=== PATIENT | female | born 1995 | race African-American/Black ===

== ENCOUNTER 2021-04-02 16:10 | Emergency (ER) | payer OTHER, SELFPAY ==
[2021-04-02 17:06] VITALS: BP 167/95; PULSE 81; RESP 17; TEMP 36.6; O2SAT 100; BMI 37.3
--- NOTE | 2021-04-02 17:10 | ECG_ITS ---
Test Reason : HYPERTENTION Blood Pressure : / mmHG Vent. Rate : 079 BPM Atrial Rate : 079 BPM P-R Int : 150 ms QRS Dur : 080 ms QT Int : 358 ms P-R-T Axes : 060 051 034 degrees QTc Int : 410 ms Normal sinus rhythm Normal ECG No previous ECGs available Referred By: Generic ED Physician Electronically Signed By:LEIDY ADKINS
[2021-04-02 17:55] LABS: MANUAL DIFF FLAG NO
[2021-04-02 17:57] LABS: Basophils Percent Auto 0.3 % (0-2); Eosinophils Absolute Auto 0.2 X10*3/uL (0.0-0.4); Eosinophils Percent Auto 2.5 % (0-4); Hematocrit 38.1 % (37-47); Hemoglobin 12.6 g/dl (12.0-16.0); Imm Gran Abs Auto 0.02 X10*3/uL (0.00-0.03); Imm Gran Pct Auto 0.3 % (0.0-0.4); Lymphocytes Absolute Auto 1.6 X10*3/uL (1.2-4.9); Lymphocytes Percent Auto 20.4 % (20-40); Mean Corpuscular HGB Conc 33.1 g/dl (31.0-35.0); Mean Corpuscular Hemoglobin 26.5 pg (27.0-33.0); Mean Corpuscular Volume 80.2 fL (80-98); Mean Platelet Volume 11.9 fL (9.4-12.3); Monocytes Absolute Auto 0.8 X10*3/uL (0.1-1.2); Monocytes Percent Auto 9.9 % (2-11); Neutrophils Absolute Auto 5.1 X10*3/uL (2.0-8.3); Neutrophils Percent Auto 66.6 % (45-73); Platelet Count 228 X10*3/uL (160-400); Red Blood Count 4.75 X10*6/uL (4.20-5.50); White Blood Count 7.7 X10*3/uL (4.8-10.8)
[2021-04-02 18:18] LABS: Troponin-I High Sensitivity < 3.5 ng/L (<3.5-17.0)
[2021-04-02 18:25] LABS: Anion Gap 11 (12-20); Blood Urea Nitrogen 15 mg/dL (9-16); Calcium 9.5 mg/dL (8.4-10.2); Carbon Dioxide 28 mmol/L (22-29); Chloride 105 mmol/L (96-108); Creatinine Clr Calc Pharmacy 89.1; Estimated Glomerular Filt Rate 58; Glucose Random 87 mg/dL (60-115); Potassium 4.2 mmol/L (3.3-5.1); Sodium 140 mmol/L (135-145)
[2021-04-02 19:31] VITALS: BP 163/103; PULSE 83; RESP 18; TEMP 36.6; O2SAT 100
--- NOTE | 2021-04-02 19:40 | ED_ITS ---
HPI - General Adult General Chief complaint: General Medical Stated complaint: High blood pressure Time Seen by Provider: 04/02/21 19:25 Source: patient Mode of arrival: ambulatory Limitations: no limitations History of Present Illness HPI narrative: 25 y/o female presenting to the ER from home for evaluation of high blood pressure. She reports for the last 1-2 weeks she has been getting intermittent headaches. Last night she had some chest discomfort before she went to bed and she was flushed in her face and chest. Her family member encouraged her to check her BP today and it was elevated at 167/90 at home. She denies history of HTN. Not on any meds. Admits to some weight gain and increased stress at home. No vision changes, no current headache or chest pain. MD complaint: HTN Onset (ago): week(s) Location: head and chest Radiation: non-radiation Severity: mild Quality: aching Pain Consistency: now resolved Relieving factors: none Exacerbating factors: none Associated symptoms: denies other symptoms Treatments prior to arrival: none Related Data Allergies Allergy/AdvReac Type Severity Reaction Status Date / Time No Known Allergies Allergy Verified 04/02/21 17:06 [No Known Allergies*] Review of Systems Review of Systems: Constitutional: No Fever, No Chills ENT/Mouth: No sore throat, No Rhinorrhea, No Swallowing Difficulty Eyes: No Vision changes Cardiovascular: + Chest Pain, No SOB, No Orthopnea, No Edema Respiratory: No Cough, No Sputum, No Wheezing, No dyspnea Gastrointestinal: No Nausea, No Vomiting, No Diarrhea, No abdominal Pain Genitourinary: No Dysuria, No Urinary Frequency, No Hematuria Musculoskeletal: No joint pain, No Myalgias Skin: No Skin Lesions, No rash Neuro: No Weakness, No Numbness, + Dizziness, + Headache Psych: + Anxiety/Panic, No Depression Endocrine: No Polyuria, No Polydipsia PMFSH Past Medical History Surgical History (Updated 04/02/21 @ 17:08 by Candi Montoya RN) H/O shoulder surgery Social History Social History Advance Directives: No Advance Directives Information Provided: Yes Patient : No Physical Exam 2 Vital Signs: Vital Signs: Last Vital Signs Temp 97.9 F 04/02/21 19:31 Pulse 79 04/02/21 20:31 Resp 16 04/02/21 20:31 BP 148/99 H 04/02/21 20:31 Pulse Ox 100 04/02/21 20:31 Body Mass Index 37.3 Appearance: Alert. Oriented X3. No acute distress. Eyes: Pupils equal, round and reactive to light. ENT: Pharynx normal. Neck: Normal inspection. Neck supple. CVS: Normal heart rate and rhythm. Pulses normal. Respiratory: No respiratory distress. Breath sounds normal. Abdomen: Soft and nontender. +BS x4 Skin: Skin warm and dry. Normal skin color. Normal skin turgor. No rashes. Extremities: No lower extremity edema. No calf tenderness Neuro: Oriented X 3. No motor deficit. No sensory deficit. Course Course Course Narrative: 25 y/o female presents for evaluation of HTN. BP initially 167/95. EKG normal. Troponin normal. Patient is asymptomatic at this time. She appears well. Repeat BP without intervention is 148/99. She is stable for d/c home with dietary modifications, weight loss and follow up with her PCP. No emergent need to start PO meds. She has a PCP she can follow up with and a BP cuff at home to monitor her pressures. She agrees with plan and is stable for discharge. Medical Decision Making Lab Data Result diagrams: 04/02/21 17:48 04/02/21 17:48 Labs: Lab Results 04/02/21 04/02/21 04/02/21 Range/Units 17:48 17:48 17:48 WBC 7.7 (4.8-10.8) X10*3/uL RBC 4.75 (4.20-5.50) X10*6/uL Hgb 12.6 (12.0-16.0) g/dl Hct 38.1 (37-47) % MCV 80.2 (80-98) fL MCH 26.5 L (27.0-33.0) pg MCHC 33.1 (31.0-35.0) g/dl RDW 13.0 (11.0-16.0) % Plt Count 228 (160-400) X10*3/uL MPV 11.9 (9.4-12.3) fL Immature Gran % (Auto) 0.3 (0.0-0.4) % Neut % (Auto) 66.6 (45-73) % Lymph % (Auto) 20.4 (20-40) % [place] % (Auto) 9.9 (2-11) % Eos % (Auto) 2.5 (0-4) % Baso % (Auto) 0.3 (0-2) % Lymph # (Auto) 1.6 (1.2-4.9) X10*3/uL [place] # (Auto) 0.8 (0.1-1.2) X10*3/uL Eos # (Auto) 0.2 (0.0-0.4) X10*3/uL Baso # (Auto) 0.0 (0.0-0.2) X10*3/uL Abs Immat Gran (auto) 0.02 (0.00-0.03) X10*3/uL Absolute Neuts (auto) 5.1 (2.0-8.3) X10*3/uL Absolute Nucleated RBC 0.000 (0.0-0.012) X10*3/uL Nucleated RBC % (auto) 0.0 (0.0-0.2) /100WBC Sodium 140 (135-145) mmol/L Potassium 4.2 (3.3-5.1) mmol/L Chloride 105 (96-108) mmol/L Carbon Dioxide 28 (22-29) mmol/L Anion Gap 11 L (12-20) BUN 15 (9-16) mg/dL Creatinine 1.13 (0.5-1.4) mg/dL Estim Creat Clear Calc 89.1 Estimated GFR 58 Random Glucose 87 (60-115) mg/dL Calcium 9.5 (8.4-10.2) mg/dL Troponin I High Sens < 3.5 (<3.5-17.0) ng/L ECG Data Attestation: I personally reviewed and interpreted this ECG as follows: Interpretation: normal sinus rhythm, HR 79, normal PA interval, No ST segment el evations or depressions Discharge Plan Discharge Clinical Impression: Hypertension Qualifiers: Hypertension type: unspecified Qualified Code(s): I10 - Essential (primary) hypertension Patient Disposition: Home, Self-Care Instructions: DASH Eating Plan (ED), Hypertension (ED) Additional Instructions: Take your blood pressure 1-2 times per day and keep a record for your doctor. Call your doctor tomorrow to arrange an appointment to be seen in the next couple of weeks. Recommend a low sodium diet. Increase your exercise. If you develop severe chest pain, severe headache, blurry vision or any other concerning symptoms call 911 or come back to the ER for further evaluation. Referrals: Guevara Hand MD [Primary Care Provider] - 1 week (HTN) Interventions: ED Discharge Assessment Last Done: 04/02/21 20:31 Discharge Date/Time: 04/02/21 20:32
[2021-04-02 20:31] VITALS: BP 148/99; PULSE 79; RESP 16; O2SAT 100
== END 2021-04-02 20:32 | disposition home or self-care (01) ==
PROVIDERS: Emergency Provider Emergency Medicine Emergency Medical Services; PCP Internal Medicine
DX: R07.9 Chest pain, unspecified (principal); I10 Essential (primary) hypertension; R51.9 Headache, unspecified
CPT/HCPCS: 36415; 80048; 84484; 85025; 93005; 99284

== ENCOUNTER → 2023-01-08 10:09 | Outpatient (BNVA) | payer OTHER, SELFPAY | PROVIDERS: PCP Internal Medicine; Visit Provider Advanced Practice Midwife | DX: N92.6 Irregular menstruation, unspecified (principal); I10 Essential (primary) hypertension | CPT/HCPCS: 81025; 99202 ==

== ENCOUNTER 2023-01-14 16:17 | Outpatient (REF) | payer OTHER, SELFPAY ==
--- NOTE | ~2023-01-14 | US_ITS ---
EXAMINATION: US PELVIS CLINICAL INFORMATION: Irregular menstruation COMPARISON: None available. TECHNIQUE: Ultrasound of the pelvis is performed using both transabdominal and transvaginal transducers along with Doppler. Transvaginal imaging is performed due to inadequate visualization transabdominally. FINDINGS: The uterus is retroverted and retroflexed and measures 8.2 x 4.4 x 2.1 cm in dimension. No focal uterine lesion is seen. Endometrial thickness is normal measuring 0.9 cm. The ovaries are normal-appearing. The right ovary measures 4.4 x 2.1 x 2.2 cm. The left ovary measures 3.7 x 2.5 x 1.7 cm. There is a small amount of fluid in the pelvis. US/US pelvic and transvaginal IMPRESSION: Unremarkable exam.
== END 2023-01-14 16:18 | disposition home or self-care (01) ==
LOC: HO.US 16:17
PROVIDERS: PCP Internal Medicine; Visit Provider Advanced Practice Midwife
DX: N92.6 Irregular menstruation, unspecified (principal); I10 Essential (primary) hypertension; Z87.42 Personal history of other diseases of the female genital tract
CPT/HCPCS: 76830; 76856

== ENCOUNTER 2023-01-26 14:53 | Outpatient (AMB) | payer OTHER, SELFPAY ==
[2023-01-26 14:55] VITALS: BP 124/74; BMI 35.6
--- NOTE | 2023-01-26 14:55 | A.OFFVIS_ITS ---
Intake Vital Signs 01/26/23 14:55 Height 5 ft 5 in Weight 214 lb BMI 35.6 BP 124/74 Blood Pressure Location Lt brachial Position Sitting Intake Visit Reasons: Ultrasound follow up Licensed Final Expense Agents Required: No Accompanied by: Self / Same As Patient Allergies No Known Allergies [No Known Allergies*] Allergy (Verified 01/26/23 14:57) Medication List - Last Reconciled 01/26/23 by Kelsi Rachel CNM amlodipine-benazepril 5-10 mg 1 cap PO DAILY medroxyprogesterone (Provera) 10 mg PO DAILY Is last menstrual period known: Yes (aug 2022) HPI Ultrasound follow up HPI Details Here for follow-up visit from her ultrasound. She wanted to know how it turned out. She has not had a period since August usually she gets them 1 month on 1 month off. She has had 2 children and she has had a tubal ligation. Review of the records reveals that she had her tubal ligation in 2018 and her last annual and Pap then too. After our last visit I had suggested that she call her primary care provider herself and she found out that her primary care provider had changed something in the practice so that she no longer excepted this patient's insurance and so she had no place to follow-up on her high blood pressure she was upset about this so she called her plan to find out who would take her insurance and it turns out Dr. serna would, and so she has a telephone appointment with her at the end of February. Patient herself has never been screened as far she knows for diabetes or other metabolic disorders. [facility] Medical History (Updated 01/26/23 @ 16:05 by Kelsi Rachel CNM) High blood pressure Surgical History H/O shoulder surgery H/O tubal ligation Family History Maternal Aunt Breast cancer Female Reproductive History Menstrual Age of Menarche: 8 Physical Exam Vital Signs: Last Vital Signs BP 124/74 01/26/23 14:55 BMI result Body Mass Index 35.6 Const Other: Evidence of either acanthosis nigricans or darkened skin from eczema or tinea versicolor.. BMI noted. BP improved today. Results Reviewed Results Reviewed: [address] [address] Ultrasound Report Signed Patient: Nikkie Petit MR#: [id number] : 1995 Acct:[id number] Age/Sex: 27 / F ADM Date: 01/14/23 Loc: .[place] Attending Dr: Kelsi Rachel CNM Ordering Physician: Kelsi Rachel CNM Date of Service: 01/14/23 Procedure(s): US pelvic and transvaginal Accession Number(s): [id number] cc: Kelsi Rachel CNM~ EXAMINATION:? US PELVIS CLINICAL INFORMATION:? Irregular menstruation COMPARISON: None available. TECHNIQUE: Ultrasound of the pelvis is performed using both transabdominal and transvaginal transducers along with Doppler. Transvaginal imaging is performed due to inadequate visualization transabdominally. FINDINGS: The uterus is retroverted and retroflexed and measures 8.2 x 4.4 x 2.1 cm in dimension. No focal uterine lesion is seen. Endometrial thickness is normal measuring 0.9 cm. The ovaries are normal-appearing. The right ovary measures 4.4 x 2.1 x 2.2 cm. The left ovary measures 3.7 x 2.5 x 1.7 cm. There is a small amount of fluid in the pelvis. US/US pelvic and transvaginal IMPRESSION: Unremarkable exam. Dictated By: Nicole Cook MD Signed By: <Electronically signed by Nicole Cook MD in OV> 01/15/23 0948 DD/ 1636 TD/TT:? C Software Developer: ADRIAN Assessment & Plan Assessment & Plan (1) History of irregular menstrual cycles: Comment: One month yes 1 month no Code(s): Z87.42 - Personal history of other diseases of the female genital tract (2) Missed menses: Comment: This is 1st time she has missed it in for 4 months... Code(s): N92.6 - Irregular menstruation, unspecified (3) High blood pressure: Comment: Sees in [place], takes 1amlopidine per day, has no future appointments set up Code(s): I10 - Essential (primary) hypertension (4) Acanthosis nigricans, acquired: Code(s): L83 - Acanthosis nigricans Plan ---Discussed PCOS in general and specifically about the interplay of the abnormal hormonal milieu related to being overweight, with the elevations of many hormone levels, including testosterone and estrogen, as well as others that contribute to cycles that are anovulatory and therefore prolonged, and when periods do come they come very heavy, and can contribute to lots of cramping, with passage of clots and anemia. Discussed the common symptoms related to the elvated hormonal levels, including increased facial hair, male pattern hair thinning, acne, and increased central abdominal girth. Discussed the interplay with difficulty getting when desired, but still possible, and therefore the need to contracept as appropriate and when needed. Discussed the role of weight loss as the primary, most important, and most likely to succeed, intervention, in achieving healthier status as regards PCOS, and ovulatory regular cycles. Additionally the very important relationship to elevated insulin levels, and blood sugars, and high risk of pre diabetes, progressing to diabetes as well as other metabolic syndromes related to this was discussed. Also discussed common interventions for some of the above, including if appropriate, use of oral contraceptives, and progestin iuds, and provera. Discussed with the patient her history of irregular menses the possible acanthosis nigricans being overweight the hypertension that all may signal part of a metabolic disorder that could be related to polycystic ovarian syndrome. Her ultrasound is completely within normal limits and that was very reassuring to her she was happy happy happy to hear that. She is however very interested in trying to get healthier and find out if there is anything else she should pay attention to. Discussed the dilemma of not having a care provider for the next 6 weeks however she is doing her best on her own to eat a little healthier lose a little weight avoid salt she has cut out soda completely and her blood pressure today was in much improved she has already run out of the hypertensive medication she was on. She has been without it for some number of weeks. I again reviewed with her what to expect when she finishes the Provera she is on day 2 today of the 10 day course. Discussed that I expect her to get a very heavy awful. And to be prepared for that she delayed taking the medicine because she did not have enough Kotex in the house and she wanted to be ready. Discussed that usually fasting metabolic labs are done by primary care provider but as she is between care providers and the issues are very much connected in cannot fully be I am going ahead and I am ordering comprehensive fasting blood work fasting and 2 hour Glucola screen as well as the heart thyroid and hormonal labs that I it ordered before in addition is CBC and her next visit will be to review all of the labs review what happened after taking the Provera and also do an annual exam with Pap smear. It is possible that perhaps if she gets healthier in loses weight may be her periods will revert to what her lifelong pattern was before which was every other month which is acceptable. If not then consideration to a Mirena IU S would probably be needed to help protect the lining of the uterus from building. In addition in case my guess of acanthosis nigricans is wrong and it turns out that her dark coloration is which on occasion can be itchy are customer success representative of a fungus or tinea it would not hurt her to try a Selsun Blue shampoo every day for the for C able future to see if it makes a difference P Orders: Orders Comprehensive [place]. Panel Fast Today I10 - Essential (primary) hypertension, L83 - Acanthosis nigricans, N92.6 - Irregular menstruation, unspecified, Z87.42 - Personal history of other diseases of the female genital tract Glucose Tolerance 2 Hour Today I10 - Essential (primary) hypertension, L83 - Acanthosis nigricans, N92.6 - Irregular menstruation, unspecified, Z87.42 - Personal history of other diseases of the female genital tract Hemoglobin A1c Today I10 - Essential (primary) hypertension, L83 - Acanthosis nigricans, N92.6 - Irregular menstruation, unspecified, Z87.42 - Personal history of other diseases of the female genital tract Lipid Panel Today I10 - Essential (primary) hypertension, L83 - Acanthosis nigricans, N92.6 - Irregular menstruation, unspecified, Z87.42 - Personal history of other diseases of the female genital tract Prolactin Today I10 - Essential (primary) hypertension, L83 - Acanthosis nigricans, N92.6 - Irregular menstruation, unspecified, Z87.42 - Personal history of other diseases of the female genital tract Complete Blood Count no Diff Today I10 - Essential (primary) hypertension, L83 - Acanthosis nigricans, N92.6 - Irregular menstruation, unspecified, Z87.42 - Personal history of other diseases of the female genital tract Coding Level of Care Code Est Pt Level 3 (96353) Diagnoses History of irregular menstrual cycles Z87.42 Missed menses N92.6 High blood pressure I10 Acanthosis nigricans, acquired L83 Time Spent (min) 40 Comment 100% [id number] reviewing all of the issues involved with PCOS and possible metabolic sy
== END 2023-01-26 16:14 | disposition home or self-care (01) ==
LOC: HO.HWS 14:53
PROVIDERS: PCP Internal Medicine; Visit Provider Advanced Practice Midwife
DX: Z87.42 Personal history of other diseases of the female genital tract (principal); N92.6 Irregular menstruation, unspecified; I10 Essential (primary) hypertension; L83 Acanthosis nigricans
CPT/HCPCS: 99213

== ENCOUNTER → 2023-01-26 14:53 | Outpatient (BNVA) | payer OTHER, SELFPAY | PROVIDERS: PCP Internal Medicine; Visit Provider Advanced Practice Midwife | DX: N92.6 Irregular menstruation, unspecified (principal); L83 Acanthosis nigricans; I10 Essential (primary) hypertension; Z87.42 Personal history of other diseases of the female genital tract | CPT/HCPCS: 99212 ==

== ENCOUNTER 2023-01-27 09:42 | Outpatient (REF) | payer OTHER, SELFPAY ==
[2023-01-27 10:32] LABS: Glucose Fasting 92 mg/dL (60-99)
[2023-01-27 10:45] LABS: Hematocrit 40.5 % (37.0-47.0); Hemoglobin 13.3 g/dl (12.0-16.0); Mean Corpuscular HGB Conc 32.8 g/dl (31.0-35.0); Mean Corpuscular Volume 79.3 fL (80.0-98.0); Mean Platelet Volume 12.5 fL (9.4-12.3); Platelet Count 213 X10*3/uL (160-400); Red Blood Count 5.11 X10*6/uL (4.20-5.50); Red Cell Distribution Width 13.4 % (11.0-16.0)
[2023-01-27 10:51] LABS: Estimated Average Glucose 100 mg/dL; Hemoglobin A1c % 5.1 %
[2023-01-27 11:30] LABS: Alanine Aminotransferase 14 U/L (0-31); Albumin Level 4.1 g/dL (3.5-5.0); Alkaline Phosphatase 61 U/L (39-117); Anion Gap 13 (12-20); Aspartate Amino Transferase 13 U/L (5-31); Bilirubin Total 0.4 mg/dL (0.0-1.0); Blood Urea Nitrogen 9 mg/dL (9-16); Calcium 9.5 mg/dL (8.4-10.2); Carbon Dioxide 25 mmol/L (22-29); Chloride 106 mmol/L (96-108); Cholesterol 169 mg/dL; Estimated Glomerular Filt Rate > 60; Glucose Fasting 90 mg/dL (60-99); HDL Cholesterol 58 mg/dL; LDL Cholesterol Calculated 100 mg/dl; Potassium 4.2 mmol/L (3.3-5.1); Sodium 140 mmol/L (135-145); Total Protein 7.5 g/dL (6.5-8.0); Triglycerides 56 mg/dL
[2023-01-27 11:48] LABS: Free T4 (Free Thyroxine) 1.08 ng/dL (0.71-1.85); Thyroid Stimulating Hormone 1.13 uIU/mL (0.32-4.0)
[2023-01-27 12:55] LABS: Glucose 1 Hour 88 mg/dL
[2023-01-27 14:31] LABS: Glucose 2 Hour 82 mg/dL
[2023-01-29 13:23] LABS: DHEA Sulfate 229 mcg/dL (14-349)
[2023-01-29 14:39] LABS: Follicle Stimulating Hormone 9.1 mIU/mL; Lutenizing Hormone 20.6 mIU/mL; Prolactin 8.8 ng/mL
[2023-02-02 14:34] LABS: Testosterone, Free 7.3 pg/mL (0.1-6.4); Testosterone, Total 65 ng/dL (2-45)
== END 2023-01-27 09:43 | disposition home or self-care (01) ==
LOC: HO.LAB 09:42
PROVIDERS: Advanced Practice Midwife; PCP Internal Medicine; Visit Provider Internal Medicine
DX: I10 Essential (primary) hypertension (principal); N92.6 Irregular menstruation, unspecified; L83 Acanthosis nigricans; Z87.42 Personal history of other diseases of the female genital tract
CPT/HCPCS: 36415; 80053; 80061; 82627; 83001; 83002; 83036; 84146; 84402; 84403; 84439; 84443; 85027